=== PATIENT | female | born 2000 | race African-American/Black ===

== ENCOUNTER 2023-06-04 23:00 | Emergency (ER) | payer MEDICAID, OTHER ==
[~2023-06-04] VITALS: Ht 154.9 cm; Wt 96.8 kg
[2023-06-04 23:12] VITALS: BP 144/78; PULSE 92; RESP 20; TEMP 98.9; O2SAT 95
[2023-06-04 23:56] LABS: Urine Bacteria NONE SEEN /hpf (None Seen); Urine Blood 1+ /uL (Negative); Urine Clarity Clear (Clear); Urine Color Straw (Yellow); Urine Protein, UAD Negative (Negative); Urine Specific Gravity 1.017 (1.001-1.035); Urine Urobilinogen Normal (Negative); Urine WBC 2 /hpf (0 - 5); Urine pH 6.5 (5.0-8.0)
[2023-06-05] MEDS: IBUPROFEN 800 MG TAB PO ONE (00:59)
== END 2023-06-05 01:02 | disposition home or self-care (01) ==
LOC: ER 23:00
DX: S30.1XXA Contusion of abdominal wall, initial encounter (principal); N93.8 Other specified abnormal uterine and vaginal bleeding; Z32.02 Encounter for pregnancy test, result negative; W25.XXXA Contact with sharp glass, initial encounter; Y93.89 Activity, other specified; Y92.89 Other specified places as the place of occurrence of the external cause; Y99.8 Other external cause status
CPT/HCPCS: 81001; 81025